=== PATIENT | male | born 1940 | race Caucasian/White ===

== ENCOUNTER 2018-05-10 17:00 | Emergency (ER) | payer OTHER ==
[2018-05-10 17:22] VITALS: BP 192/96; PULSE 62; TEMP 97.4; BMI 26.6
[2018-05-10] MEDS ORDERED: ALBUTEROL SO4 2.5/IPRATROPIUM 0.5 INH SOL 3 ML VIAL.NEB. NEB ONE ×2 (17:24→17:35)
--- NOTE | 2018-05-10 17:28 | PDOC ---
History of Present Illness - General Chief Complaint: Respiratory Stated Complaint: COUGH Time Seen by Provider: 05/10/18 17:10 History Source: Patient Exam Limitations: No Limitations - History of Present Illness Initial Comments: 05/10/18 17:25 78 YOM with h/o HTN, HLD, gout, kidney stones presenting with productive cough and congestion x 10 days. today while walking outdoors with family member, he experienced wheezing and shortness of breath, a/w mild dizziness, improved with rest. no f/c, cp, n/v/d, AP, leg pain /swelling. no syncope/falls. No sick contacts or travel. increased on dose of losartan while in [place] where he was evaluated for htn urgency Allergies: None Past Medical History: HTN, HLD, gout, kidney stones Social history: Lives with family. No smoking. No alcohol. No illicit drugs. Surgical history: hernia repair. ureteral stent ROS Constitutional: no fevers or chills. HEENT: no headache, difficulty swallowing, ear aches/pain. +congestion. No visual/hearing disturbances. CVS: no cp or syncope. Resp: no sob. +cough Gastrointestinal: no abdominal pain, nausea or vomiting. MUSCULOSKELETAL: No joint pain and swelling. No neck or back pain. SKIN: no redness or skin changes, no discharge, no rash. No wounds. Hematologic: no easy bruising/bleeding. NEUROLOGIC: No headache, LOC or altered mental status. No weakness, numbness or tingling. Allergic/Immunologic: no allergies All other systems reviewed and negative, or as documented in HPI. PE: General: Well appearing, awake and alert, NAD. HEENT: NCAT, PERRL, EOMI, clear conjunctiva, anicteric, moist mucus membranes, clear oropharynx, no oral lesions.. Neck: neck supple, FROM Resp: CTAB, normal and even respirations, no respiratory distress; no wheeze or crackles or coarse breath sounds. CVS: RRR, no murmurs, 2+ peripheral pulses throughout, no peripheral edema Abdomen: soft, NTND, no peritoneal signs. Back: nontender, normal inspection and ROM MSK: no edema, DUMONT x4, ROM intact. No clubbing or cyanosis. normal bulk and tone. Extremities: no calf tenderness Neuro: alert, awake. Skin: warm and well perfused, cap refill <2 sec, normal color 05/10/18 17:28 05/10/18 17:41 Past History - Past Medical History Allergies/Adverse Reactions: Allergies Allergy/AdvReac Type Severity Reaction Status Date / Time No Known Allergies Allergy Verified 05/10/18 17:16 Home Medications: Ambulatory Orders Finasteride 5 mg PO DAILY 03/01/12 Losartan 50Mg/Hctz 12.5MG [Hyzaar] 1 tab PO DAILY 03/01/12 Albuterol Sulfate Inhaler - [Ventolin HFA Inhaler -] 1 - 2 inh PO Q4H PRN #1 inhaler 05/10/18 COPD: No HTN: Yes Hypercholesterolemia: Yes Kidney Stones: Yes - Immunization History Td Vaccination: Yes TDAP Vaccination: Yes Immunization Up to Date: No - Suicide/Smoking/Psychosocial Hx Smoking Status: No Smoking History: Never smoked Number of Cigarettes Smoked Daily: 0 Hx Alcohol Use: No Drug/Substance Use Hx: No *Physical Exam - Vital Signs Last Vital Signs Temp Pulse Resp BP Pulse Ox 97.4 F L 62 16 192/96 H 99 05/10/18 17:10 05/10/18 17:10 05/10/18 17:10 05/10/18 17:10 05/10/18 17:10 Moderate Sedation - Procedure Monitoring Vital Signs: Procedure Monitoring Vital Signs Temperature 97.4 F L 05/10/18 17:10 Pulse Rate 62 05/10/18 17:10 Respiratory Rate 16 05/10/18 17:10 Blood Pressure 192/96 H 05/10/18 17:10 O2 Sat by Pulse Oximetry (%) 99 05/10/18 17:10 ED Treatment Course - RADIOLOGY Radiology Studies Ordered: Category Date Time Status CHEST PA & LAT [RAD] Stat Radiology 05/10/18 17:11 Ordered Medical Decision Making - Medical Decision Making 05/10/18 17:41 hpi as documented VS with mild hypertension, but no other symptoms - has history of htn not well controlled, on agents (no ACEinhibitor). afebrile, normal respiratory status and O2 sat. DDx. pna, viral syndrome, URI, allergies. pt is well appearing, no acute distress. no wheeze, but with the history of exertional component in setting of URI, sx likely bronchospasm from inflammation /infection. no cp or sob acutely. trial of duoneb, with clinical improvement. rx albuterol inhaler with appropriate instructions for the cough and expectant management. no abx indicated salt water gargles and warm lemon tea is appropriate as well. minimize spread of infection given contagious nature, and cover your mouth and wash your hands adequately with soap and water. Stay well hydrated and rest. May use the albuterol inhaler every 4-6 hours as needed for cough and breathing to clear up your airways. Return precautions include respiratory distress, difficulty breathing, chest pain, lethargy, confusion, dehydration, high fevers or pain. 05/10/18 17:45 05/10/18 18:04 *DC/Admit/Observation/Transfer Diagnosis at time of Disposition: Bronchitis URI (upper respiratory infection) Qualifiers: URI type: unspecified viral URI Qualified Code(s): J06.9 - Acute upper respiratory infection, unspecified - Discharge Dispostion Disposition: HOME Condition at time of disposition: Good Decision to Admit order: No - Prescriptions Prescriptions: Albuterol Sulfate Inhaler - [Ventolin HFA Inhaler -] 1 - 2 inh PO Q4H PRN #1 inhaler PRN Reason: Cough - Referrals Referrals: Nabor Cote [Primary Care Provider] - - Patient Instructions Printed Discharge Instructions: DI for Cough -- Adult, DI for Acute Bronchitis , DI for Viral Upper Respiratory Infection -- Adult Additional Instructions: you were evaluated for your cough and congestion. your chest xray appears clear, no signs of pneumonia or congestion salt water gargles and warm lemon tea is appropriate as well for the cough and throat.. minimize spread of infection given contagious nature, and cover your mouth and wash your hands adequately with soap and water. Stay well hydrated and rest. May use the albuterol inhaler every 4-6 hours as needed for cough and breathing to clear up your airways. Return precautions include respiratory distress, difficulty breathing, chest pain, lethargy, confusion, dehydration, high fevers or pain. otherwise, follow up with your primary care doctor. - Post Discharge Activity
== END 2018-05-10 18:13 | disposition home or self-care (01) ==
LOC: FER 17:00
PROC: 3E0F7GC Introduction of Other Therapeutic Substance into Respiratory Tract, Via Natural or Artificial Opening (ICD-10-PCS; principal; 2018-05-10)
DX: J06.9 Acute upper respiratory infection, unspecified (principal); J40 Bronchitis, not specified as acute or chronic; I10 Essential (primary) hypertension; E78.00 Pure hypercholesterolemia, unspecified; Z87.442 Personal history of urinary calculi
CPT/HCPCS: 71046-TC-FY; 99281-25

== ENCOUNTER 2018-09-08 05:35 | Observation (INO) | payer OTHER | END 2018-09-09 09:45 | disposition home or self-care (01) | LOC: FER 05:35 → FM/S 07:08 ==

== ENCOUNTER 2018-09-11 09:20 | Emergency (ER) | payer OTHER ==
[2018-09-11 09:48] VITALS: BP 186/95; PULSE 87; TEMP 97.6; BMI 25.0
--- NOTE | 2018-09-11 10:01 | PDOC ---
History of Present Illness - General Chief Complaint: Nasal Bleeding Stated Complaint: NOSE BLEED Time Seen by Provider: 09/11/18 09:57 - History of Present Illness Initial Comments: 09/11/18 15:45 Chief complaint: Nosebleed History of present illness: Uncontrolled bleeding from the right side of the nose for approximately one half hour. Begun on Eliquis last week for short episode of atrial fibrillation, which has resolved. Has cardiology appointment for further evaluation Review of systems: Denies chest pain, shortness of breath, abdominal pain, nausea, vomiting, diarrhea, visual or focal neurologic symptoms, unsteadiness of gait. Denies recent URI symptoms, ALLERGY symptoms, cold, facial and nasal pain. Past medical history: Atrial fibrillation, recent onset, as noted above, high blood pressure, elevated cholesterol. Social history: Lives with family, active and without significant disability, no tobacco alcohol or nonprescription drugs Family history: Reviewed and noncontributory including early coronary artery disease, metabolic diseases including diabetes, and cancer Physical exam: Alert and oriented, acute epistaxis with relatively brisk bleeding from the right nares and into the back of the throat. However, cooperative to examination Afebrile, vital signs normal There is dark red blood present in the oropharynx and the right nares. There is oozing as well from the nose. Otherwise the ENT is clear Neck supple without bruit mass or nodes Chest with full breath sounds bilaterally CV S1 and S2 without murmur rub or gallop pulses full and symmetric no JVD or edema. There is no tachycardia in the rate is regular. Abdomen soft nontender without mass or organomegaly Neurological intact Impression: Nosebleed, probably secondary to recent initiation of anticoagulant , bleeding is brisk and site of bleeding cannot identified easily. Regular sinus rhythm with atrial fibrillation resolved, Plan: CBC, chemistries, INR, control of epistaxis with nasal packing and further observation. Past History - Past Medical History Allergies/Adverse Reactions: Allergies Allergy/AdvReac Type Severity Reaction Status Date / Time No Known Allergies Allergy Verified 09/08/18 05:36 Home Medications: Ambulatory Orders Finasteride 5 mg PO DAILY 09/08/18 Losartan Potassium 100 mg PO DAILY 09/08/18 Apixaban [Eliquis -] 2.5 mg PO BID #60 tablet 09/09/18 Amoxicillin - [Amoxicillin 250mg Capsule -] 250 mg PO TID #21 capsule 09/11/18 Cardiac Disorders: Yes (A-FIB) COPD: No HTN: Yes Hypercholesterolemia: Yes Kidney Stones: Yes - Immunization History Td Vaccination: Yes TDAP Vaccination: Yes Immunization Up to Date: No - Suicide/Smoking/Psychosocial Hx Smoking Status: No Smoking History: Former smoker Have you smoked in the past 12 months: No Number of Cigarettes Smoked Daily: 0 Information on smoking cessation initiated: No Hx Alcohol Use: No Drug/Substance Use Hx: No Substance Use Type: None Hx Substance Use Treatment: No *Physical Exam - Vital Signs Last Vital Signs Temp Pulse Resp BP Pulse Ox 97.6 F 87 18 186/95 H 97 09/11/18 09:36 09/11/18 09:36 09/11/18 09:36 09/11/18 09:36 09/11/18 09:36 ED Treatment Course - LABORATORY CBC & Chemistry Diagram: 09/11/18 11:00 09/11/18 11:00 Medical Decision Making - Medical Decision Making 09/11/18 15:51 Procedure note: Nasal packing The right side of the nose was packed in the usual manner using a Rapid Rhino, anterior size tampon. Bleeding immediately subsided. Prolonged observation ensured that leading was controlled. CBC, INR, chemistries without significant abnormalities Patient discharged with his daughter to follow-up with ENT and cardiology as directed. Antibiotics prescribed to prevent sinus infection. Fully ambulatory and in no distress upon discharge. *DC/Admit/Observation/Transfer Diagnosis at time of Disposition: Epistaxis - Discharge Dispostion Disposition: HOME Condition at time of disposition: Improved Decision to Admit order: No - Prescriptions Prescriptions: Amoxicillin - [Amoxicillin 250mg Capsule -] 250 mg PO TID #21 capsule - Referrals Referrals: Cullen Carney MD [Staff Physician] - 3 days - Patient Instructions Printed Discharge Instructions: DI for Nosebleed Additional Instructions: Rest. Return to ER if there is bleeding. Otherwise see ENT specialist in 3 days for removal of packing Discuss further monitoring and Eliquis therapy with schedule analyst. - Post Discharge Activity
[2018-09-11 11:11] LABS: BASO % 0.9 % (0-2.0); EOS % 1.5 % (0-4.5); HEMATOCRIT 50.9 % (35.4-49); HEMOGLOBIN 16.7 GM/dl (11.7-16.9); LYMPH % 8.5 % (8-40); MCH 28.5 pg (25.7-33.7); MCHC 32.9 g/dl (32.0-35.9); MEAN CELL VOLUME 86.8 fl (80-96); MEAN PLT VOLUME 9.8 fl (7.5-11.1); NEUT % 81.1 % (42.8-82.8); PLATELET COUNT 174 K/MM3 (134-434); RBC 5.86 M/mm3 (4.00-5.60); RDW 12.7 % (11.9-15.9); WHITE BLOOD COUNT 5.3 K/mm3 (4.0-10.8)
[2018-09-11 11:24] LABS: INR 1.06 (0.82-1.09); PROTHROMBIN TIME (PATIENT) 11.8 SEC (10.2-13.0)
[2018-09-11 11:29] LABS: ALBUMIN 3.9 g/dl (3.4-5.0); BILIRUBIN,TOTAL 0.9 mg/dl (0.2-1); CALCIUM 9.3 mg/dl (8.5-10); CREATININE 1.4 mg/dl (0.55-1.3); POTASSIUM 4.4 mmol/L (3.5-5.1); TOT PROT 6.3 g/dl (6.4-8.2)
== END 2018-09-11 13:39 | disposition home or self-care (01) ==
LOC: FER 09:20
PROC: 2Y41X5Z Packing of Nasal Region using Packing Material (ICD-10-PCS; principal; 2018-09-11)
DX: R04.0 Epistaxis (principal); I48.91 Unspecified atrial fibrillation; Z87.891 Personal history of nicotine dependence; E78.00 Pure hypercholesterolemia, unspecified; Z87.442 Personal history of urinary calculi
CPT/HCPCS: 36415; 80053; 85025; 85610; 99282-25

== ENCOUNTER 2018-09-12 23:30 | Emergency (ER) | payer OTHER ==
[2018-09-12 23:39] VITALS: TEMP 97.9; BMI 25.0
[2018-09-13 00:01] VITALS: BP 158/63; PULSE 55
--- NOTE | 2018-09-13 00:01 | PDOC ---
History of Present Illness - General Chief Complaint: Irregular Heart Beat Stated Complaint: HR SLOW Time Seen by Provider: 09/12/18 23:47 History Source: Patient, Family Exam Limitations: No Limitations - History of Present Illness Initial Comments: 09/12/18 23:55 This is an 78-year-old male brought in by his girlfriend for evaluation of the irregular heartbeat. Patient was admitted recently for atrial fib//flutter. As per the daughter while patient was here he has heart rate was irregular but in sinus rhythm and in the 40s and 50s. She was concerned because he sent home and was in the 40s or 50s. The emergency room patient is having some PACs that are being blocked. Patient has no complaints of chest pain, shortness of breath, nausea, palpitations, diaphoresis or any other complaints. Patient said that sometimes he can't feel the irregularity of his heart but it does not bother him. Allergies: as per nursing notes Past Medical History: none Social history: Lives with family. No smoking. No alcohol. No illicit drugs. Surgical history: None General: No fevers or chills, no weakness, no weight loss HEENT: No change in vision. No sore throat,. No ear pain CardioVascular: no chest discomfort. No shortness of breath Respiratory:No cough, or wheezing. Gastrointestinal: no nausea, vomiting, diarrhea or constipation, No rectal bleeding Genitourinary: No dysuria, hematuria, or frequency Musculoskeletal: No joint or muscle pain or swelling Neurologic: No headache, vertigo, dizziness or loss of consciousness Psychiatric: nor depression Skin: No rashes or easy bruising Endocrine: no increased thirst or abnormal weight change Allergic: no skin or latex allergy All other systems reviewed and normal Exam: General: Well-nourished well-developed individual, no acute distress HEENT: Throat: Normal, tonsils normal, no erythema or exudate Neck: Supple, no meningeal signs, no lymphadenopathy Eyes::Pupils equal reactive and round, extraocular motion intact Chest: Nontender to palpation Cardiac: S1-S2 normal, irregular rate and rhythm, no murmurs rubs or gallops Respiratory: Lungs clear to auscultation bilateral Abdomen: Soft, nondistended, normal bowel sounds, there is no tenderness on palpation diffusely Extremities: Warm, dry, no cyanosis, clubbing, or edema Skin: No rashes Neuro: Alert and oriented x3, CN II - XII intact, nonfocal exam with normal strength, normal sensation, normal reflexes, normal gait, Psych: Normal mood and affect 09/12/18 23:57 EKG shows a normal sinus rhythm at a rate of 61 with PACs. No acute ST-T wave changes Assessment plan: This is an 78-year-old male with no complaints but girlfriend was concerned she felt his pulse and thought it was irregular. Patient is in sinus rhythm with some blocked PACs. Otherwise EKG shows no acute ST-T wave changes. Patient's blood pressure with this rhythm is slightly elevated and he had no complaints. Patient was observed here in the ED as per girlfriends request for an hour and then discharged home Past History - Past Medical History Allergies/Adverse Reactions: Allergies Allergy/AdvReac Type Severity Reaction Status Date / Time No Known Allergies Allergy Verified 09/08/18 05:36 Home Medications: Ambulatory Orders Finasteride 5 mg PO DAILY 09/08/18 Losartan Potassium 100 mg PO DAILY 09/08/18 Apixaban [Eliquis -] 2.5 mg PO BID #60 tablet 09/09/18 Amoxicillin - [Amoxicillin 250mg Capsule -] 250 mg PO TID #21 capsule 09/11/18 Cardiac Disorders: Yes (A-FIB) COPD: No HTN: Yes Hypercholesterolemia: Yes Kidney Stones: Yes - Immunization History Td Vaccination: Yes TDAP Vaccination: Yes Immunization Up to Date: No - Suicide/Smoking/Psychosocial Hx Smoking Status: No Smoking History: Never smoked Have you smoked in the past 12 months: No Number of Cigarettes Smoked Daily: 0 Hx Alcohol Use: No Drug/Substance Use Hx: No Substance Use Type: None Hx Substance Use Treatment: No *Physical Exam - Vital Signs Last Vital Signs Temp Pulse Resp BP Pulse Ox 97.9 F 53 L 17 190/72 H 98 09/12/18 23:31 09/12/18 23:31 09/12/18 23:31 09/12/18 23:31 09/12/18 23:31 *DC/Admit/Observation/Transfer Diagnosis at time of Disposition: Irregular heart beats - Discharge Dispostion Disposition: HOME Condition at time of disposition: Stable Decision to Admit order: No - Referrals - Patient Instructions Additional Instructions: If you develop any chest pain, shortness of breath, sweating, dizziness or feeling here in the past that is very important that you call 911 and come back to the ED. Call your photocopying machine operator on Friday morning and get an appointment follow-up as soon as possible. Take all your medications as prescribed. Return to the emergency department immediately with ANY new, persistent or worsening symptoms. Continue any medications as previously prescribed by your physician. You should follow up with your primary doctor as soon as possible regarding today's emergency department visit. . Please make sure your doctor reviews the results of your emergency evaluation. Thank you for coming to the Emergency Department today for your care. It was a pleasure to see you today. Please note that your evaluation is INCOMPLETE until you follow-up with your doctor. - Post Discharge Activity
--- NOTE | 2018-09-14 11:07 | EKG ---
Test Reason : Blood Pressure : / mmHG Vent. Rate : 061 BPM Atrial Rate : 087 BPM P-R Int : 164 ms QRS Dur : 088 ms QT Int : 428 ms P-R-T Axes : 000 001 -07 degrees QTc Int : 430 ms SINUS RHYTHM WITH BLOCKED PREMATURE ATRIAL COMPLEXES SEPTAL INFARCT (CITED ON OR BEFORE 08-SEP-2018) ABNORMAL ECG WHEN COMPARED WITH ECG OF 08-SEP-2018 06:13, PREMATURE ATRIAL COMPLEXES ARE NOW PRESENT Confirmed by LACI HUTCHINSON MD ([id number]) on 09/14/2018 11:07:10 AM Referred By: MD YOUNGER Confirmed By:LACI HUTCHINSON MD
== END 2018-09-13 00:15 | disposition home or self-care (01) ==
LOC: FER 23:30
DX: I49.8 Other specified cardiac arrhythmias (principal); I48.91 Unspecified atrial fibrillation; I10 Essential (primary) hypertension; E78.00 Pure hypercholesterolemia, unspecified; Z87.442 Personal history of urinary calculi
CPT/HCPCS: 93005; 99282-25

== ENCOUNTER 2018-09-15 05:23 | Emergency (ER) | payer OTHER ==
--- NOTE | 2018-09-15 05:26 | PDOC ---
History of Present Illness - General Chief Complaint: Nasal Bleeding Stated Complaint: NOSE BLEED Time Seen by Provider: 09/15/18 05:26 - History of Present Illness Initial Comments: 09/15/18 06:09 This 78-year-old man presents with a few hour history of right nostril epistaxis. The patient was seen here on 09/11 with right nostril epistaxis; bleeding was effectively treated using a Rhino device in the right nostril. He was seen by Dr. Cervantes, ENT staff yesterday and the Rhino packing device removed. The patient awakened a few hours prior to presentation and used nasal spray as instructed. Soon after using the spray, epistaxis resumed from the right nostril. Despite efforts to control the bleeding by the patient and his girlfriend, bleeding was persistent and the patient presented. Past history notable for new-onset A. fib/flutter on 09/08, which resolved spontaneously. The patient was started on eliquis during his hospitalization and this continued until the epistaxis episode; anticoagulation was discontinued after the nosebleed on 09/11. No other new trauma to nose. Patient denies lightheadedness/chest pain/ shortness breath Past History - Past Medical History Allergies/Adverse Reactions: Allergies Allergy/AdvReac Type Severity Reaction Status Date / Time No Known Allergies Allergy Verified 09/15/18 05:38 Home Medications: Ambulatory Orders Finasteride 5 mg PO DAILY 09/08/18 Losartan Potassium 100 mg PO DAILY 09/08/18 Apixaban [Eliquis -] 2.5 mg PO BID #60 tablet 09/09/18 Amoxicillin - [Amoxicillin 250mg Capsule -] 250 mg PO TID #21 capsule 09/11/18 Cardiac Disorders: Yes (A-FIB) COPD: No HTN: Yes Hypercholesterolemia: Yes Kidney Stones: Yes - Immunization History Td Vaccination: Yes TDAP Vaccination: Yes Immunization Up to Date: No - Suicide/Smoking/Psychosocial Hx Smoking Status: No Smoking History: Never smoked Have you smoked in the past 12 months: No Number of Cigarettes Smoked Daily: 0 Hx Alcohol Use: No Drug/Substance Use Hx: No Substance Use Type: None Hx Substance Use Treatment: No Review of Systems - Review of Systems Able to Perform ROS?: Yes Comments:: 12 point review of systems is negative except for what is noted in the history of present illness *Physical Exam - Physical Exam Comments: GENERAL: Adult male, alert and oriented 3, HEAD: Normal with no signs of trauma. EYES: PERRLA, EOMI, sclera anicteric, conjunctiva clear. Brisk bleeding from right nostril NEUROLOGICAL: Cranial nerves II through XII grossly intact. Normal speech. No focal neurological deficits. SKIN: Warm, Dry, normal turgor, no rashes or lesions noted. Medical Decision Making - Medical Decision Making The patient and his girlfriend requested that another type of packing or device be used rather than the Rhino balloon device since this was bulky and uncomfortable. Vaseline gauze strip packing was placed in the right nostril using bayonet forceps. Although adequate volume of packing was used , complete hemostasis was not achieved. The patient agreed to reapplication of the Rhino device. 4.5 centimeter anterior size Rhino device inserted into right nostril and balloon inflated. Good hemostasis achieved 09/15/18 06:44 Patient observed for approximately 30 minutes without resumption of epistaxis. Patient will be discharged with Rhino packing device in place. He should contact Dr. Cervantes and follow-up as arranged. He should return to the ER if he has recurrent bleeding/chest pain/shortness of breath/lightheadedness. *DC/Admit/Observation/Transfer Diagnosis at time of Disposition: Recurrent epistaxis - Discharge Dispostion Disposition: HOME Condition at time of disposition: Stable - Referrals Referrals: Flakito Cervantes MD [Staff Physician] - - Patient Instructions Printed Discharge Instructions: DI for Nosebleed Additional Instructions: Leave packing in place call Dr Cervantes's office and followup as arranged Return to ER if nasal bleeding recurs or you develop lightheadedness/shortness of breath/chest pain - Post Discharge Activity
[2018-09-15 05:45] VITALS: PULSE 72; BMI 25.4
[2018-09-15 06:09] VITALS: BP 157/84
== END 2018-09-15 06:40 | disposition home or self-care (01) ==
LOC: FER 05:23
PROC: 2Y41X5Z Packing of Nasal Region using Packing Material (ICD-10-PCS; principal; 2018-09-15)
DX: R04.0 Epistaxis (principal); I48.91 Unspecified atrial fibrillation; I10 Essential (primary) hypertension; E78.5 Hyperlipidemia, unspecified; Z87.442 Personal history of urinary calculi
CPT/HCPCS: 30901-25; 99281-25